=== PATIENT | female | born 1955 | race Asian ===

== ENCOUNTER → 2017-01-17 | Outpatient (CLI) | payer BC, OTHER ==
--- NOTE | 2017-01-17 14:28 | DIAGNOSTIC IMAGING REPORT ---
BILATERAL LOWER EXTREMITY VENOUS DOPPLER HISTORY: Acute right KNEE PAIN/SWELLING R/O DVT COMPARISON STUDY: None. FINDINGS: There is normal compressibility, flow, and augmentation within the right lower extremity deep venous system. IMPRESSION: No evidence of deep venous thrombosis within the right lower extremity. Electronically signed by: Alex Cheema M.D. 01/17/2017 2:27 PM Dictated Date/Time: 01/17/2017 2:25 PM
--- NOTE | 2017-01-17 14:51 | DIAGNOSTIC IMAGING REPORT ---
LEFT KNEE 1 OR 2 VIEWS ROUTINE CLINICAL HISTORY: Bilateral knee pain. Fall one month ago. COMPARISON: None FINDINGS: Alignment of the left knee is anatomic. There is no acute fracture. There is a small left knee joint effusion. There is tricompartmental osteophytosis with mild lateral compartment joint space narrowing. IMPRESSION: 1. No acute fracture. 2. Small left knee joint effusion. 3. Mild to moderate osteoarthritis of the left knee, most pronounced within the lateral and patellofemoral compartments. Electronically signed by: Souleymane Choi M.D. 01/17/2017 2:50 PM Dictated Date/Time: 01/17/2017 2:48 PM
--- NOTE | 2017-01-17 14:55 | DIAGNOSTIC IMAGING REPORT ---
RIGHT KNEE 1 OR 2 VIEWS ROUTINE HISTORY: 61 years-old Female BILATERAL KNEE PAIN Right COMPARISON: Left knee radiographs of same day TECHNIQUE: Standing frontal and lateral views of the right knee FINDINGS: Mild to moderate tricompartmental degenerative changes are noted. There is a moderate-sized joint effusion without intra-articular loose body, acute fracture or dislocation is identified. Negative for opaque foreign body. There is mild prepatellar soft tissue swelling. IMPRESSION: 1. Moderate size joint effusion without acute fracture or dislocation. 2. Mild to moderate tricompartmental osteoarthritis. 3. Mild prepatellar soft tissue swelling. The above report was generated using voice recognition software. It may contain grammatical, syntax or spelling errors. Electronically signed by: Alex Cheema M.D. 01/17/2017 2:54 PM Dictated Date/Time: 01/17/2017 2:52 PM
== END | disposition home or self-care (01) ==
LOC: C.ULTRBC 13:46
PROVIDERS: ATTEND Internal Medicine
DX: M25.562 Pain in left knee (principal); M25.561 Pain in right knee